=== PATIENT | male | born 1940 | race Caucasian/White ===

== ENCOUNTER → 2021-06-11 | Day surgery (SDC) | payer MEDICARE, OTHER ==
[~2021-06-11] MED LIST: Ketamine 200 MG/20 ML MDV ONE; Lactated Ringers 1,000 ML IV SCH; Propofol 200 MG/20 ML SDV ONE; fentaNYL 100 MCG/2 ML SDV ONE
[2021-06-11 10:13] VITALS: BP 120/60; PULSE 56
== END ==
LOC: CC.SDS 08:10
PROVIDERS: ATTEND Family Medicine
DX: Z12.11 Encounter for screening for malignant neoplasm of colon (principal); D12.3 Benign neoplasm of transverse colon; D12.5 Benign neoplasm of sigmoid colon; D12.8 Benign neoplasm of rectum; K51.40 Inflammatory polyps of colon without complications; K57.30 Diverticulosis of large intestine without perforation or abscess without bleeding; I10 Essential (primary) hypertension; K21.9 Gastro-esophageal reflux disease without esophagitis; E78.00 Pure hypercholesterolemia, unspecified; E03.9 Hypothyroidism, unspecified; Z88.8 Allergy status to other drugs, medicaments and biological substances; Z79.82 Long term (current) use of aspirin; Z79.899 Other long term (current) drug therapy; Z90.49 Acquired absence of other specified parts of digestive tract; Z87.891 Personal history of nicotine dependence
CPT/HCPCS: J2704; J3010; J7120

== ENCOUNTER 2025-01-07 15:11 | Emergency (ER) | payer MEDICARE, OTHER ==
[2025-01-07 15:25] LABS: BASOPHILS ABSOLUTE AUTO 0.03 10^3/uL (0.00-0.50); BASOPHILS PERCENT AUTO 0.5 % (0-1); EOSINOPHILS ABSOLUTE AUTO 0.19 10^3/uL (0.00-1.50); EOSINOPHILS PERCENT AUTO 3.0 % (0-6); IMMATURE GRAN ABSOLUTE AUTO 0.01 10^3/uL (0.00-0.49); IMMATURE GRAN PERCENT AUTO 0.2 % (0.0-4.9); LYMPHOCYTES ABSOLUTE AUTO 1.03 10^3/uL (0.60-5.00); LYMPHOCYTES PERCENT AUTO 16.4 % (24-44); MONOCYTES ABSOLUTE AUTO 0.65 10^3/uL (0.00-1.50); MONOCYTES PERCENT AUTO 10.4 % (0-10); NEUTROPHILS ABSOLUTE AUTO 4.37 x10^3/uL (1.80-8.00); NEUTROPHILS PERCENT AUTO 69.5 % (41-71); PLATELET COUNT,PLT 237 10^3/uL (150-400); RED BLOOD CELL COUNT 5.29 x10^6/uL (4.50-6.00); WHITE BLOOD CELL COUNT,WBC 6.3 10^3/uL (4.0-11.0)
[2025-01-07 15:33] LABS: INR 0.95 (0.92-1.18)
[2025-01-07 15:37] LABS: CREATINE KINASE,CK 160.0 U/L (35-232); LACTATE DEHYDROGENASE,LDH 227.0 U/L (100-190)
[2025-01-07 15:42] LABS: ALANINE AMINOTRANSFERASE,ALT 49.0 U/L (12-78); ASPARTATE AMNIOTRANSFERASE,AST 26.0 U/L (15-37); BILIRUBIN TOTAL 0.5 mg/dL (0.0-1.0); BLOOD UREA NITROGEN,BUN 14.0 mg/dL (7-18); CARBON DIOXIDE,CO2 25.0 mmol/L (21-32); CHLORIDE,CL 104.0 mEq/L (98-106); CREATININE 1.0 mg/dL (0.7-1.3); EST CRCL DRUG DOSING (CG) 53.25 mL/min; ESTIMATED GFR 75.0 mL/min (>=60); GLUCOSE RANDOM 178.0 mg/dL (75-99); POTASSIUM,K 3.9 mEq/L (3.5-5.0); PROTEIN TOTAL,TP 6.9 g/dL (6.4-8.2); SODIUM,NA 140.0 mEq/L (136-145)
[2025-01-07 16:02] LABS: PRO B-TYPE NATRIUR PEPT,BNPPRO 225.0 pg/mL (0-1000)
[2025-01-07] MEDS: Heparin Sodium 5,000 Units/ML Vial IVPUSH ONE (16:42)
[2025-01-07] MEDS: Heparin Sodium/0.45% NaCl 25,000 UNITS/250 ML BAG IV SCH (16:50)
[2025-01-07 18:00] VITALS: BP 173/104; PULSE 93
== END 2025-01-07 18:15 ==
LOC: CC.ED 15:11
DX: I21.4 Non-ST elevation (NSTEMI) myocardial infarction (principal); E78.00 Pure hypercholesterolemia, unspecified; E03.9 Hypothyroidism, unspecified; J44.89 Other specified chronic obstructive pulmonary disease; M19.90 Unspecified osteoarthritis, unspecified site; Z79.899 Other long term (current) drug therapy; Z79.890 Hormone replacement therapy; Z88.8 Allergy status to other drugs, medicaments and biological substances; Z87.891 Personal history of nicotine dependence
CPT/HCPCS: 36415; 71046; 80053; 82550; 83615; 83690; 83735; 83880; 84484; 85025; 85610; 85730; 86140; 93005; 93010; 96365; 99284; 99285-25; A9270-GY; J1644